=== PATIENT | female | born 1985 | race Caucasian/White ===

== ENCOUNTER 2017-03-01 06:23 | Inpatient (IN) | payer OTHER ==
[2017-03-01] VITALS (26 sets, daily range): BP systolic 115–148; BP diastolic 58–87
[~2017-03-01] VITALS: Ht 157.5 cm; Wt 98.0 kg
[2017-03-01 07:20] LABS: BASO % 0.4 % (0.0-1.0); EOS # 0.4 10^3/uL (0.0-0.50); EOS % 3.7 % (0.0-3.0); IMMATURE GRANULOCYTE % 0.7 % (0-0); LYMPH # 2.2 10^3/uL (1.5-4.5); LYMPH % 22.4 % (24.0-44.0); MEAN CORPUSCULAR HEMOGLOBIN 30.6 pg (27.0-33.0); MEAN CORPUSCULAR HGB CONC 34.4 g/dl (32.0-36.5); MEAN CORPUSCULAR VOLUME 88.8 fl (80.0-96.0); MONO # 0.7 10^3/uL (0.0-0.8); MONO % 6.5 % (0.0-5.0); NEUTROPHILS # 6.6 10^3/uL (1.8-7.7); NEUTROPHILS % 66.3 % (36.0-66.0); PLATELET COUNT, AUTOMATED 257 10^3/uL (150-450); RED CELL DISTRIBUTION WIDTH 13.9 % (11.5-14.5)
[2017-03-01 07:29] LABS: ADD MANUAL DIFFER NO; DIFF SLIDE NUMBER 110
[2017-03-01] MEDS ORDERED: LR 1,000 ML IV SCH (08:41)
[2017-03-01] MEDS ORDERED: PENICILLIN G POTASSIUM IV 5 MU in D5W MINI-BAG PLUS 100 ML IV STA ×2 (08:41→13:08)
[2017-03-01] MEDS ORDERED: OXYTOCIN DRIP 30 UNITS in APPROPRIATE DILUENT 1 EA IV SCH ×2 (08:45→19:59)
[2017-03-01] MEDS: LR 1,000 ML IV SCH ×2 (09:06→18:22)
[2017-03-01] MEDS ORDERED: PENICILLIN G POTASSIUM IV 2.5 MU in D5W 100 ML IV SCH ×2 (12:45→17:00)
[2017-03-01] MEDS ORDERED: FENTANYL 2MCG/ML ROPIVACAINE 0.2% IN 0.9% NACL 200ML IVBAG As Ordered ONE (18:48)
[2017-03-01] MEDS ORDERED: METHYLERGONOVINE MALEATE 0.2 MG/ML VIAL (J2210) IM PRN (20:00)
[2017-03-01] MEDS ORDERED: LIDOCAINE 1% MDV INJ 50 ML VIAL INFIL ONE (20:00)
[2017-03-01] MEDS ORDERED: RHOGAM 300 MCG (1500 IU) INJ (J2790) IM SCH (20:00)
[2017-03-01] MEDS ORDERED: PROMETHAZINE 25 MG TAB PO PRN (20:00)
[2017-03-01] MEDS ORDERED: ACETAMINOPHEN 500 MG TAB PO PRN (20:00)
[2017-03-01] MEDS ORDERED: DIBUCAINE 1% OINTMENT 30GM TOP PRN (20:00)
[2017-03-01] MEDS ORDERED: MEASLES,MUMPS,RUBELLA VACCINE INJ (MMR-II) (90707) SC SCH (20:00)
[2017-03-01] MEDS ORDERED: ONDANSETRON 4MG/2ML VIAL (J2405) IV PRN (20:00)
[2017-03-01] MEDS: IBUPROFEN 800 MG TAB PO PRN (20:54)
[2017-03-01] MEDS: DOCUSATE SODIUM 100 MG CAP PO SCH (21:00)
[2017-03-02] MEDS: IBUPROFEN 800 MG TAB PO PRN ×2 (05:26→13:07)
[2017-03-02 06:00] VITALS: BP 120/70
[2017-03-02 09:00] VITALS: BP 122/72
[2017-03-02] MEDS: DOCUSATE SODIUM 100 MG CAP PO SCH ×2 (09:32→20:48)
[2017-03-02] MEDS: PRENATAL VITAMINS CHEWABLE TABLET PO SCH (09:32)
[2017-03-02 18:00] VITALS: BP 124/72
[2017-03-03] MEDS: IBUPROFEN 800 MG TAB PO PRN (03:34)
[2017-03-03 06:00] VITALS: BP 121/70
--- NOTE | 2017-03-03 07:12 | IPNPDOC ---
Text Note Date of Service The patient was seen on 03/03/17. NOTE PPD2 prog note States feeling well, no complaints. No heavy VB. Pain controlled. Voiding, ambulatory. Bonding well. Bottle feeding. VSSAF CTAB RRR Ut at U-2, firm Ext no CCE a/p: Doing well. d/c this morning. To bonding if baby not released at 48 hrs (this evening). Meds dispensed, all ready to leave at 48 hrs if Neonat permits. Sessions VS,Vanessa, I+O VSVanessa I+O Vital Signs Date Time Temp Pulse Resp B/P (MAP) Pulse Ox O2 Delivery O2 Flow Rate FiO2 03/03/17 06:00 99.3 69 16 121/70 (87) 97 Room Air SESSIONS,LINDA Nuñez MD Mar 03, 2017 07:12
--- NOTE | 2017-03-03 07:15 | DS.PDOC ---
Discharge Summary General Date of Admission Mar 01, 2017 at 06:23 Date of Discharge [id number] Discharge Summary PROCEDURES PERFORMED DURING STAY: spontaneous vaginal delivery ADMITTING DIAGNOSIS: 1. Induction at 41 weeks DISCHARGE DIAGNOSES: 1. Healthy female HOSPITAL COURSE: Admitted for induction on labor and delivery. Uncomplicated other than fast active labor/second stage, see delivery note. DISCHARGE MEDICATIONS: Motrin, Tylenol, Colace Physical exam: see note from this morning LABORATORY DATA: Please see below. ACTIVITY: as tolerated. Nothing in vagina for 6 weeks. DIET: regular DISPOSITION:stable TIME SPENT ON DISCHARGE: Greater than 15 minutes. Sessions Vital Signs/I&Os Vital Signs Date Time Temp Pulse Resp B/P (MAP) Pulse Ox O2 Delivery O2 Flow Rate FiO2 03/03/17 06:00 99.3 69 16 121/70 (87) 97 Room Air Allergies Coded Allergies: No Known Allergies (Unverified , 03/01/17) SESSIONSLINDA MD Mar 03, 2017 07:15
[2017-03-03] MEDS ORDERED: ACET50TA PO (08:40)
[2017-03-03] MEDS ORDERED: COLA100C5 PO (08:40)
[2017-03-03] MEDS ORDERED: IBUP-1114 PO (08:40)
[2017-03-03] MEDS ORDERED: PRENTAB9 PO (08:40)
[2017-03-03] MEDS: DOCUSATE SODIUM 100 MG CAP PO SCH (08:45)
[2017-03-03] MEDS: PRENATAL VITAMINS CHEWABLE TABLET PO SCH (08:45)
== END 2017-03-03 13:00 | disposition home or self-care (01) | DRG 775 ==
LOC: M LDI 06:23 → M OBS 21:42
PROVIDERS: ADMIT Obstetrics & Gynecology; ATTEND Obstetrics & Gynecology
PROC: 10E0XZZ Delivery of Products of Conception, External Approach (ICD-10-PCS; principal; 2017-03-01)
PROC: 0KQM0ZZ Repair Perineum Muscle, Open Approach (ICD-10-PCS; 2017-03-01)
PROC: 3E033GC Introduction of Other Therapeutic Substance into Peripheral Vein, Percutaneous Approach (ICD-10-PCS; 2017-03-01)
DX: O48.0 Post-term pregnancy (principal); Z37.0 Single live birth; Z3A.41 41 weeks gestation of pregnancy; E66.9 Obesity, unspecified; O99.824 Streptococcus B carrier state complicating childbirth; Z79.899 Other long term (current) drug therapy; O70.1 Second degree perineal laceration during delivery; O99.214 Obesity complicating childbirth